=== PATIENT | female | born 1955 | race Caucasian/White ===

== ENCOUNTER 2019-02-28 12:14 | Day surgery (SDC) | payer MEDICARE, OTHER ==
[2019-02-27 13:54] VITALS: BMI 40.3
[2019-02-28] MEDS ORDERED: Lidocaine 1% PF 5 ML VIAL ONE (12:33)
[2019-02-28] MEDS ORDERED: Sodium Bicarbonate 2.5 MEQ/5 ML VIAL ONE (12:33)
--- NOTE | 2019-02-28 13:46 | ULT ---
Ultrasound thyroid: 02/28/2019 HISTORY: 64-year-old female with Left thyroid nodule found on chest CT of 01/05/2019 from [facility]. The patient has been referred for ultrasound-guided fine-needle aspiration. COMPARISON: No prior thyroid ultrasounds. Outside CT has been presented on disc, and scanned into the [employer] PACS. FINDINGS: At the lower pole of the left lobe of the thyroid gland, there is a nodule with central large cystic component and surrounding moderately thick rim of soft tissue component. Composition: Mixed solid and cystic: 1.0 point Echogenicity: Hyperechoic solid component: 1.0 point Shape: Wider than tall: 0 point Margin: Smooth: 0 point Echogenic foci: None: 0 point Total points: 2 Thyroid dimensions: Isthmus: 0.7 cm AP Right lobe: 1.8 x 4.7 x 2.1 cm. Left lobe: 1.6 x 4.7 x 2.1 cm. No other thyroid nodules. IMPRESSION: 1.) TIRADS category 2: Not suspicious. No fine-needle aspiration recommended. No follow-up recommende d. 2) the nodule at the left lobe lower pole is a mixed solid and cystic lesion, and it corresponds to t he CT findings.
[2019-02-28 13:52] VITALS: BP 173/77; TEMP 98.3
== END 2019-02-28 13:40 | disposition home or self-care (01) ==
LOC: ULT 12:14
PROVIDERS: ATTEND Specialist
DX: E04.1 Nontoxic single thyroid nodule (principal); I10 Essential (primary) hypertension; E78.00 Pure hypercholesterolemia, unspecified; K21.9 Gastro-esophageal reflux disease without esophagitis; F41.9 Anxiety disorder, unspecified; F32.9 Major depressive disorder, single episode, unspecified; Z79.1 Long term (current) use of non-steroidal anti-inflammatories (NSAID); Z79.82 Long term (current) use of aspirin; Z79.899 Other long term (current) drug therapy
CPT/HCPCS: 76536; J2001